=== PATIENT | female | born 1965 | race Caucasian/White ===

== ENCOUNTER 2024-03-03 05:56 | Outpatient (CLI) | payer OTHER | END 2024-03-03 23:59 | disposition home or self-care (01) | LOC: MRI02 05:56 | PROVIDERS: ATTEND Podiatrist Foot & Ankle Surgery | DX: S93.691A Other sprain of right foot, initial encounter (principal); M25.871 Other specified joint disorders, right ankle and foot; D36.7 Benign neoplasm of other specified sites; M79.671 Pain in right foot; M76.829 Posterior tibial tendinitis, unspecified leg; M21.41 Flat foot [pes planus] (acquired), right foot; M72.2 Plantar fascial fibromatosis; X58.XXXA Exposure to other specified factors, initial encounter; Y93.89 Activity, other specified; Y92.89 Other specified places as the place of occurrence of the external cause; Y99.8 Other external cause status | CPT/HCPCS: 73718 ==